=== PATIENT | female | born 1955 | race Caucasian/White ===

== ENCOUNTER 2016-10-26 12:11 | Inpatient (IN) | payer OTHER ==
[2016-10-29] MEDS ORDERED: ALBUTEROL0.63 MG/3 IH ×2 (11:26→11:31)
[2016-10-29] MEDS ORDERED: KEFLEX-DPS500 MG PO (11:26)
[2016-10-29] MEDS ORDERED: MULTIVITAMINS1 EAC1 PO (11:26)
[2016-10-29] MEDS ORDERED: MAG-OX400 MG PO (11:26)
[2016-10-29] MEDS ORDERED: MUCINEX600 MG PO (11:27)
[2016-10-29] MEDS ORDERED: ASA CHILDREN'S81 MG PO (11:27)
[2016-10-29] MEDS ORDERED: FOLIC ACID0.8 M1 PO (11:27)
[2016-10-29] MEDS ORDERED: VITAMIN D31000 UNIT PO (11:28)
[2016-10-29] MEDS ORDERED: CALCIUM 600 +1 EA13 PO (11:28)
[2016-10-29] MEDS ORDERED: ZEBETA5 MG PO (11:32)
[2016-10-29] MEDS ORDERED: COZAAR DPS25 MG PO (11:32)
[2016-10-29] MEDS ORDERED: LASIX DPS20 MG PO (11:32)
[2016-10-29] MEDS ORDERED: ADVAIR DIS1 PUFF/DO1 IH (11:33)
[2016-10-29] MEDS ORDERED: SPIRIVA RESPIMAT4 G1 IH (11:33)
[2016-10-29] MEDS ORDERED: POTASSIUM CHLO20 ME2 PO (11:34)
[2016-10-29] MEDS ORDERED: FLOVENT 44MCG10.6 GM NS (11:34)
[2016-10-29] MEDS ORDERED: LIPITOR DPS20 MG PO (11:35)
[2016-10-29] MEDS ORDERED: SINGULAIR10 MG PO (11:35)
[2016-10-29] MEDS ORDERED: PRILOSEC DPS20 MG PO (11:35)
[2016-10-29] MEDS ORDERED: PROAIR RESPICL90 MCG IH (11:35)
[2016-10-29] MEDS ORDERED: CARDIZEM CD DP120 MG PO (11:36)
[2016-10-29] MEDS ORDERED: XARELTO20 MG PO (11:36)
[2016-11-18] MEDS ORDERED: FLONASE 0.05% D16 GM NS (13:21)
[2016-11-18] MEDS ORDERED: CORDARONE DPS200 MG PO (13:22)
[2016-11-18] MEDS ORDERED: DULERA 200/58.8 GM IH (13:22)
[2016-11-18] MEDS ORDERED: TESSALON PERLE100 MG PO (13:22)
[2016-11-18] MEDS ORDERED: PROVENTIL2.5 MG/3 M IH (13:23)
[2016-11-18] MEDS ORDERED: ROBITUSSIN AC D30 ML PO (13:24)
[2016-11-18] MEDS ORDERED: MAALOX DPS30 ML PO (13:24)
[2016-11-18] MEDS ORDERED: DELTASONE DPS1 MG PO (13:24)
[2016-11-18] MEDS ORDERED: SURFAK DPS240 MG PO (13:25)
[2016-11-18] MEDS ORDERED: TYLENOL DPS325 MG PO (13:25)
== END 2016-10-28 14:20 | disposition home or self-care (01) | DRG 310 ==
DX: I48.92 Unspecified atrial flutter (principal); Z99.81 Dependence on supplemental oxygen; J44.9 Chronic obstructive pulmonary disease, unspecified; E78.5 Hyperlipidemia, unspecified; I25.10 Atherosclerotic heart disease of native coronary artery without angina pectoris; I10 Essential (primary) hypertension; E83.42 Hypomagnesemia; F41.9 Anxiety disorder, unspecified; F32.9 Major depressive disorder, single episode, unspecified; F10.21 Alcohol dependence, in remission; L03.032 Cellulitis of left toe; I25.2 Old myocardial infarction; Z79.82 Long term (current) use of aspirin; Z95.5 Presence of coronary angioplasty implant and graft; Z87.891 Personal history of nicotine dependence

== ENCOUNTER 2016-11-14 09:02 | Inpatient (IN) | payer OTHER ==
[~2016-11-14] VITALS: Ht 165.1 cm; Wt 74.8 kg
[~2016-11-14 09:02] MED LIST: ADVAIR DIS1 PUFF/DO1 IH; ALBUTEROL0.63 MG/3 IH; ASA CHILDREN'S81 MG PO; CALCIUM 600 +1 EA13 PO; CARDIZEM CD DP120 MG PO; COZAAR DPS25 MG PO; FLOVENT 44MCG10.6 GM NS; FOLIC ACID0.8 M1 PO; KEFLEX-DPS500 MG PO; LASIX DPS20 MG PO; LIPITOR DPS20 MG PO; MAG-OX400 MG PO; MUCINEX600 MG PO; MULTIVITAMINS1 EAC1 PO; POTASSIUM CHLO20 ME2 PO; PRILOSEC DPS20 MG PO; PROAIR RESPICL90 MCG IH; SINGULAIR10 MG PO; SPIRIVA RESPIMAT4 G1 IH; VITAMIN D31000 UNIT PO; XARELTO20 MG PO; ZEBETA5 MG PO
--- NOTE | 2016-11-15 14:41 | CO ---
ADMIT: 11/14/2016 RM/LOC: 414 [facility] MR#: [id number] [address] [address] JULIO CESAR YIN [address] [place] [address] Consultation SEX: F AGE: 61 : 1955 DATE OF CONSULTATION: 11/14/2016 ATTENDING PHYSICIAN: Lopez Joyce CONSULTING PHYSICIAN: Mykel Samaniego MD REASON FOR CONSULTATION: Atrial flutter with rapid ventricular response. HISTORY OF PRESENT ILLNESS: Jaki is a pleasant 61-year-old female with history of coronary artery disease, status post non-ST elevation myocardial infarction in 2013 with a drug-eluting stent to her RCA. She presented on October 27 with atrial flutter with rapid ventricular response. She underwent a NANCY and cardioversion and sinus rhythm was restored. She was placed on Xarelto and low-dose Cardizem. She has felt pretty good until recently, she started develop a cough and said she was more short of breath. She started having a pressure sensation in her chest that was similar to when she had atrial flutter last hospitalization. She was noted to be in atrial flutter and was admitted to the hospital with Cardizem drip. She says now that her heart rate is slowed down below 100. She feels much better. Her breathing is better. She still is coughing but she is not having any tightness across her chest. She does have an elevated white count on her evaluation in the emergency room. PAST MEDICAL HISTORY: 1. History of hyperlipidemia. 2. History of tobacco abuse. 3. History of COPD, oxygen dependent. 4. Coronary artery disease, status post non-ST elevation MO with stenting to the right coronary artery in 2013. 5. History of osteoarthritis. 6. History of cataracts. 7. History of depression. 8. History of alcohol use. SOCIAL HISTORY: She is , does have a history of tobacco abuse and history of alcohol use. She works at [employer]. FAMILY HISTORY: Father had myocardial infarction at age 68 and a grandfather had myocardial infarction at age 70, mother with a stroke. REVIEW OF SYSTEMS: GENERAL: She denies any fever or chills. Denies any weight changes. EYES: She does have cataracts, removed in last March, wears corrective lenses for reading. ENT: Denies any hearing loss. No problems with her nose, throat, and mouth. PULMONARY: She has oxygen-dependent COPD, has been coughing more. GI: Denies any nausea, vomiting, or diarrhea. She does have history of reflux. : Denies any dysuria or hematuria. ADMIT: 11/14/2016 RM/LOC: 414 [facility] MR#: [id number] [address] [place] [id number] JULIO CESAR YIN [address] [place] [address] Consultation SEX: F AGE: 61 : 1955 MUSCULOSKELETAL: She has a history of arthritis. ENDOCRINE: Denies history of thyroid dysfunction or diabetes. HEMATOLOGIC: Denies history of anemia or easy bruising. She is on Xarelto now. Denies history of cancer. NEUROLOGIC: No history of TIA or stroke. PSYCHIATRIC: Does have history of depression. Denies any anxiety. ALLERGIES: NO KNOWN DRUG ALLERGIES. MEDICATION: 1. Aspirin 81 mg daily. 2. Cardizem 120 mg daily. 3. Calcium daily. 4. Cozaar 25 mg daily. 5. Keflex 500 mg 3 times a day for cellulitis. 6. Potassium 20 mEq twice daily. 7. Lasix 20 mg daily. 8. Lipitor 40 mg at bedtime. 9. Mag oxide 400 mg daily. 10.Omeprazole 20 mg daily. 11.Multivitamin daily. 12.Vitamin D daily. 13.Xarelto 20 mg daily. 14.Zebeta 2.5 mg daily. 15.Proventil p.r.n. diarrhea daily. 16.Flonase 1 puff daily. PHYSICAL EXAMINATION: VITAL SIGNS: Blood pressure 122/74, pulse 107 and irregular, respirations 20, temperature 97.8, oxygen 93% on 2 L. GENERAL: She is alert, oriented, and conversant. She is in no acute distress. SKIN: [place], warm, and dry. EYES: No scleral icterus. No xanthelasma. ENT: Moist mucous membranes. No jugular venous distention. No carotid bruits. LUNGS: She has coarse breath sounds. HEART: Irregularly irregular. ABDOMEN: Soft, nontender, and nondistended. EXTREMITIES: No cyanosis, clubbing, or edema. PSYCHIATRIC: She is alert, oriented, and appropriate NEUROLOGIC: Cranial nerves II through XII intact. DIAGNOSTIC DATA: EKG shows atrial flutter with 2-1 block initially. IMPRESSION AND RECOMMENDATION: 1. Atrial flutter. This is recurrent. She underwent NANCY cardioversion on her last hospitalization about 3 weeks ago. She has had recurrent symptoms last night. She has been on anticoagulation with Xarelto, so we ADMIT: 11/14/2016 RM/LOC: 414 [facility] MR#: [id number] [address] [place] [phone] JULIO CESAR YIN [address] [place] [address] Consultation SEX: F AGE: 61 : 1955 will try to chemically cardiovert her. We will give her dose of IV digoxin and IV amiodarone. If this is not successful, we will consider DC cardioversion. We will also need to consider EP consultation, given these recurrent episodes. We also will try to increase her rate control medications but this has been limited by her blood pressure. 2. Coronary artery disease, status post [id number] myocardial infarction in 2013. She will need an outpatient ischemic evaluation. Her last one was in 2014. 3. Chronic obstructive pulmonary disease. 4. Elevated white count at [address] Keith. Thank you for allowing us to participate in the care of your patient. If I can be of further assistance, please give me a call. Mykel Samaniego MD/ anselmo JOB #: [id number] CC: Lopez Joyce, Attending Physician Lopez Joyce, Family Physician
--- NOTE | 2016-11-15 15:00 | HP ---
ADMIT: 11/14/2016 RM/LOC: 414 [facility] MR#: [id number] [address] [address] JULIO CESAR YIN [address] [place] [address] History and Physical SEX: F AGE: 61 : 1955 DATE OF SERVICE: Interim History and Physical CHIEF COMPLAINT: Recurrent atrial flutter with rapid ventricular response. CLINICAL HISTORY: The patient is a 61-year-old white female, who is readmitted to [facility] after being seen in the emergency room on Wednesday morning, 11/14/2016. The patient had contacted our office early on the morning of 11/14/2016 complaining of rapid heart rate, a sensation of pressure across her chest, and feeling like she did when she went into atrial fibrillation previously. Note the patient was hospitalized here at [facility] from 10/26/2016 through 10/28/2016. The patient was admitted with atrial flutter with rapid ventricular response. She was seen in consult by [facility] Cardiology and underwent elective cardioversion following a transesophageal echocardiogram on the morning of 10/27/2016. Following cardioversion, she remained in normal sinus rhythm and was placed on oral Cardizem. She had some difficulty during that hospitalization with low blood pressure, and so was dismissed on a dose of Cardizem CD 120 mg daily. The patient subsequently has been followed up at our office by Dr. Joyce. She was seen at our office one week post discharge and was in a normal sinus rhythm at that time. She notes that she felt good until the evening of 11/13/2016, when she started to notice that her heart rate had sped up and she felt some tightness and pressure across her anterior chest. The patient had to sit up through the night and slept with her O2 on as she usually does, but upon awakening on the morning of 11/14/2016, her heart rate still seemed to be very fast and she was still having some tightness across her chest. For that reason, as noted, she contacted our office and we instructed her to go to the emergency room. She is evaluated in the ER by Dr. Lazaro, who noted on EKG that she was in atrial flutter with 2:1 block with a rate ranging from 115 to as high as 140. In view of her recurrent atrial fib flutter with some associated hypotension, it was felt best to admit the patient. She was given IV Cardizem in the ER and her rate slowed down to the 100 range. She was started on a Cardizem drip in the ER as well and admitted to the fourth floor PCU for continued cardiac monitoring as well as further Cardiology consultation. For additional clinical history, I refer you to her H and P from 10/26/2016. The patient notes no other recent hospitalizations. Her primary medical problems include: 1. Chronic obstructive pulmonary disease, O2 dependent at night. 2. Hypertension. 3. Hyperlipidemia. 4. Coronary artery disease with history of previous PTCA with stent in August of 2013. 5. She also has history of chronic anxiety and mild depression. 6. 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 The patient is a former smoker having quit smoking in August of 2013 when they placed her stent. For additional past medical history, social history, and family history, please see previous H and P. ADMIT: 11/14/2016 RM/LOC: 414 [facility] MR#: [id number] [address] [address] JULIO CESAR YIN [address] [place] [address] History and Physical SEX: F AGE: 61 : 1955 CURRENT MEDICATIONS: As of her discharge of 10/28/2016, included: 1. Baby aspirin 81 mg daily. 2. Calcium with vitamin D one daily. 3. Cardizem CD 120 mg daily. 4. Cozaar 25 mg daily. 5. Potassium 20 mEq b.i.d. 6. Lasix 20 mg daily. 7. Lipitor 40 mg at bedtime. 8. Magnesium oxide 400 mg daily. 9. Omeprazole 20 mg daily. 10.Multivitamin 1 daily. 11.Vitamin D daily. 12.Xarelto 20 mg daily, initiated at last hospitalization. 13.Zebeta 2.5 mg daily. 14.Proventil inhaler 2 puffs q.3 to 4 hours p.r.n. 15.Spiriva 18 mcg one capsule inhaled daily. 16.Flonase 2 whiffs each naris once daily. 17.TJN treatments with albuterol q.i.d. and p.r.n. Do note, at last discharge she was dismissed on Keflex. She finished that one week post discharge. The patient notes no other medication changes. ALLERGIES: NO KNOWN ALLERGIES TO ANY MEDICATIONS. REVIEW OF SYSTEMS: CONSTITUTIONAL: She denies fever or chills, had been feeling well until the evening of 11/13/2016. HEENT: She has been having some ongoing chronic sinus congestion. Denies any vision or hearing change. PULMONARY: Chronically, short of breath. Marked dyspnea on exertion, uses O2 continuously at night. Usually does not use oxygen during the day. She denies any pleuritic chest pain. No hemoptysis. No increase in sputum production. CARDIAC: She has a known history of coronary artery disease. She has had previous PTCA with stent. She has had some tightness or heaviness across her chest associated with her tachycardia, status post cardioversion on 10/27/2016. GASTROINTESTINAL: Does have some occasional dyspepsia and indigestion this is usually well controlled with her omeprazole. She has had no nausea, vomiting, or diarrhea. No blood in the stools. GENITOURINARY: She is post menopausal. No voiding symptoms. MUSCULOSKELETAL: Some generalized arthritic discomfort. No recent falls or injuries. NEUROLOGIC: No focal symptoms. No unusual headaches. No lightheadedness, dizziness, or syncope. Integument: No rashes or areas of skin breakdown. PHYSICAL EXAMINATION: At this time; GENERAL: The patient is a 61-year-old female, who appears older than her stated age. She is alert and cooperative, oriented x3. She is in no acute distress. ADMIT: 11/14/2016 RM/LOC: 414 [facility] MR#: [id number] [address] [address] JULIO CESAR YIN Monica [address] [place] [address] History and Physical SEX: F AGE: 61 : 1955 VITAL SIGNS: Height 5 feet 5.5 inches, weight is 169 pounds. Temp is 98 degrees, blood pressure was 100/64, pulse was running 115 to 120, respirations were 20, O2 saturation with oxygen on is 95%. HEENT: Exam revealed her pupils to be equal and reactive. Sclerae nonicteric. Conjunctivae noninflamed. Nose and throat are unremarkable. Oral mucous membranes are moist. NECK: Supple. No lymphadenopathy. Thyroid not enlarged. No neck masses. LUNGS: Today are noted to be diminished. Poor air movement. No wheezes or rales. HEART: Noted to have an irregular rhythm. She is tachycardic. I cannot appreciate any murmurs. ABDOMEN: Soft, nontender. No masses. No organomegaly. No hernias. PELVIC, BREAST, AND RECTAL: Exam not performed. EXTREMITIES: Noted to have no clubbing or cyanosis. No significant peripheral edema. No calf tenderness. No signs of thrombophlebitis. NEUROLOGIC: She is intact with no focal deficit. Balance and gait are normal. Cranial nerves II through XII grossly intact. LABORATORY AND DIAGNOSTIC DATA: EKG in the ER shows atrial flutter with 2:1 block with rapid ventricular response. Her CBC did show an elevated white count of 19,200. Her electrolytes were normal. Cardiac enzymes including troponin I were normal. Chest x-ray shows changes of COPD with no acute infiltrates. No evidence of failure. ASSESSMENT: At the time of admission: 1. Recurrent atrial flutter with rapid ventricular response. 2. SA node dysfunction. 3. Atherosclerotic coronary vascular disease, status post prior PTCA with stent. 4. Chronic obstructive pulmonary disease, O2 dependent at night. 5. Tobacco use disorder, in full sustained remission. 6. Leukocytosis, felt to be stress response due to her tachyarrhythmia. PLAN: Plan is to admit the patient to fourth floor PCU. We will continue with Kathryn zimmerman. We will ask Cardiology to see her again and get their recommendations regarding further medical management of her atrial fibrillation flutter versus repeating another cardioversion. We will continue her on her Xarelto anticoagulation. HISTORY AND PHYSICAL EXAMINATION FROM ADMISSION OF 10/26/2016 CHIEF COMPLAINT: Atrial flutter with rapid ventricular response. HISTORY OF PRESENT ILLNESS: Jaki is a very nice 61-year-old female, who has been seen in the office today for routine healthcare checkup. She has history of COPD, hyperlipidemia, and coronary artery disease. She states that she has noticed her heart beating a little bit faster recently, but did not know why it was going this fast. When she was checked in the office, her vital signs ADMIT: 11/14/2016 RM/LOC: 414 [facility] MR#: [id number] [address] [place] [id number] JULIO CESAR YIN [address] [place] [address] History and Physical SEX: F AGE: 61 : 1955 showed a heart rate of 154. This was confirmed with EKG which showed heart rate of 160 with atrial flutter and rapid ventricular response. She denies any prior problems with atrial flutter or rapid heartbeat. She does admit to a little bit of chest tightness with her heart going this fast. She does have history of coronary artery disease, followed by [facility] Cardiology. She is admitted to hospital at this time for atrial flutter with rapid ventricular response. PAST MEDICAL HISTORY: Includes COPD, hypertension, hyperlipidemia, coronary artery disease. She last had a coronary stent placed in August 2013. She has history of chronic anxiety, depression, prior history of alcohol abuse but she has been in remission now for the last couple of years. SURGICAL HISTORY: Negative other than 3 childbirth. SOCIAL HISTORY: Former smoker. Smoked a pack and half of cigarettes per day for 30 years, quit 2013. Prior history of alcohol abuse but currently not using alcohol. She is , lives with her . Her children are grown. FAMILY HISTORY: Noncontributory. ALLERGIES: NONE. CURRENT MEDICATIONS: 1. Uses ProAir metered dose inhaler, p.r.n. 2. Albuterol twin jet nebulizer p.r.n. 3. Lasix 20 mg p.o. daily. 4. Uses Singulair 10 mg p.o. daily. 5. Advair Diskus 250/50 one puff b.i.d. 6. Spiriva 1 inhalation daily. 7. Omeprazole 20 mg p.o. daily. 8. Folic acid 800 mcg daily. 9. Potassium 20 mEq daily. 10.Aspirin 81 mg a day. 11.Plavix 75 mg daily. 12.Losartan 25 mg daily. 13.Magnesium 400 mg. 14.Lipitor 40 mg at bedtime. 15.Zebeta 5 mg daily. 16.P.r.n. ibuprofen. REVIEW OF SYSTEMS: A 10-point review of systems negative other than noted above. PHYSICAL EXAM: GENERAL: 61-year-old female. She is alert and cooperative x3. No acute distress. VITAL SIGNS: In the office her blood pressure was 124/82, heart rate was 154, weight 163 pounds. Her oxygen saturation on room air was 96%. Her height is ADMIT: 11/14/2016 RM/LOC: 414 [facility] MR#: [id number] [address] [address] JULIO CESAR YIN [address] [place] [address] History and Physical SEX: F AGE: 61 : 1955 65.5 inches and temp 98.8. HEENT: Eyes, PERRLA. EOMs intact. TMs not seen. Throat is moist, not inflamed. NECK: Supple. No lymphadenopathy. No thyromegaly. LUNGS: Clear. HEART: Regular rate, tachycardic. No murmur heard. ABDOMEN: Soft. No organomegaly or tenderness. and RECTAL: Deferred. EXTREMITIES: No clubbing, cyanosis, or edema. DIAGNOSTIC IMPRESSION: 1. Atrial flutter with rapid ventricular response. 2. Coronary artery disease. 3. Hyperlipidemia. 4. Chronic obstructive pulmonary disease. 5. History of alcohol abuse in remission. 6. Cellulitis left 3rd toe. Failed to mention the tip of left 3rd toe has little bit of inflammation along the nail. PLAN: Admit to hospital for telemetry, serial EKG, enzymes check, thyroid levels. Cardiology consult, oral Keflex for the toe cellulitis. Hoang Keith MD/ anselmo JOB #: [id number] and [id number] CC: Lopez Joyce, Attending Physician Lopez Joyce, Family Physician
[2016-11-18] MEDS ORDERED: FLONASE 0.05% D16 GM NS (13:21)
[2016-11-18] MEDS ORDERED: DULERA 200/58.8 GM IH (13:22)
[2016-11-18] MEDS ORDERED: CORDARONE DPS200 MG PO (13:22)
[2016-11-18] MEDS ORDERED: TESSALON PERLE100 MG PO (13:22)
[2016-11-18] MEDS ORDERED: PROVENTIL2.5 MG/3 M IH (13:23)
[2016-11-18] MEDS ORDERED: ROBITUSSIN AC D30 ML PO (13:24)
[2016-11-18] MEDS ORDERED: MAALOX DPS30 ML PO (13:24)
[2016-11-18] MEDS ORDERED: DELTASONE DPS1 MG PO (13:24)
[2016-11-18] MEDS ORDERED: TYLENOL DPS325 MG PO (13:25)
[2016-11-18] MEDS ORDERED: SURFAK DPS240 MG PO (13:25)
--- NOTE | 2016-11-20 07:43 | DS ---
ADMIT: 11/14/2016 RM/LOC: 414 [facility] MR#: [id number] [address] [address] NACHODAVIDISABELLE MALDONADODOTTIE Anderson [address] [place] [address] General Discharge Summary SEX: F AGE: 61 : 1955 ADMISSION DATE: 11/14/2016 DISCHARGE DATE: 11/17/2016 DISMISSAL DIAGNOSIS: Recurrent atrial flutter with rapid ventricular response. DISMISSAL DIAGNOSIS: Atrial flutter converted to sinus rhythm. COMPLICATING DIAGNOSES: 1. Chronic obstructive pulmonary disease with acute exacerbation. 2. Acute sinusitis. 3. Hyperlipidemia. 4. History of alcohol abuse, currently in remission. 5. Cellulitis of left 3rd toe. CHIEF COMPLAINT AND HISTORY OF PRESENT ILLNESS: A 61-year-old female, readmitted to [facility] after being seen in the emergency room on November 14, with complaints of rapid heartbeat. She had a prior history of AFib, and she said it felt similarly. She came into the emergency room, was found to be in aflutter with rapid ventricular response. Previously, she had elective cardioversion done on October 27 and stayed in sinus rhythm until this current episode. Ventricular rate in the emergency room was in the 120 to 140 range, and therefore admitted to the hospital for Cardiology consult. LABORATORY REPORTS: See lab summary sheets for details. RADIOLOGY REPORTS: CT of the sinuses showed acute maxillary sinusitis on the right side. Chest x-ray was normal. EKG showed sinus tachycardia with PACs, diffuse ST changes. Serial EKG showed the same. COURSE IN THE HOSPITAL: She was admitted, seen by Cardiology. Serial EKG, cardiac enzymes were obtained. She was placed on Cardizem drip. She did convert to sinus rhythm. She did have elevated white blood cell count on admission, so she had cultures obtained, was started on IV Rocephin 2 g q.24 hours. Blood cultures were obtained along with lactic acid and procalcitonin levels. Her white count on admission was 19.2, hemoglobin 14.7. Electrolytes on admission shows sodium 139, potassium 4.0, chloride 101, CO2 of 25, BUN 13, creatinine 1.0, glucose 104. The following day, white count on November 15 was 14,000, hemoglobin 11.9, potassium 3.9, magnesium 1.7, creatinine 0.8. Blood and urine cultures showed no growth. She had persistent cough and sinus drainage. She was started on Advair, Mucinex, and Tessalon Perles. She was placed on amiodarone drip initially in that she converted and was switched to oral amiodarone. Her cough and congestion improved. Prior to dismissal, she was improved, she was afebrile. Sats on room air were 89% to 98% range. DISCHARGE MEDICATIONS: She was dismissed on: 1. Aspirin 81 mg daily. 2. Calcium with vitamin D daily. 3. Cardizem 120 mg daily. ADMIT: 11/14/2016 RM/LOC: 414 [facility] MR#: [id number] [address] [place] [phone] JULIO CESAR YIN [address] [place] [address] General Discharge Summary SEX: F AGE: 61 : 1955 4. Amiodarone 200 mg two tablets b.i.d. plus additional 50 mg tablet once a day. 5. Cozaar 25 mg daily. 6. Potassium 20 mEq b.i.d. 7. Lasix 20 mg daily. 8. Lipitor 40 mg at bedtime. 9. Magnesium oxide 400 mg daily. 10.Mucinex 600 mg two tablets b.i.d. 11.Omeprazole 20 mg daily. 12.Tessalon Perles p.r.n. for cough. 13.Multivitamin 1 daily. 14.Vitamin D 1000 International Units daily. 15.Xarelto 20 mg daily. 16.Zebeta 5 mg daily. 17.Dulera 200/5 two puffs b.i.d. 18.Proventil inhaler p.r.n. 19.Spiriva 18 mcg capsule inhaled once daily. 20.Flonase nasal spray daily. 21.Keflex 500 mg t.i.d. 22.Prednisone tapering dose 30 mg daily for four days, 20 mg daily for 7 days, 10 mg daily for 14 days, then stop it. 23.Keflex 500 mg t.i.d. for 10 days. DISCHARGE INSTRUCTIONS: She will be seen back in the office on November 20, for followup with myself. Lopez Joyce MD/ anselmo JOB #: [id number] CC: Lopez Joyce MD, Attending Physician Lopez Joyce MD, Family Physician
--- NOTE | 2016-11-21 08:15 | ER ---
ADMIT: 11/14/2016 RM/LOC: 414 [facility] MR#: [id number] [address] [place], [place] [address] JULIO CESAR YIN [address] [place] [address] Emergency Room Report SEX: F AGE: 61 : 1955 DATE: 11/14/2016 HISTORY OF PRESENT ILLNESS: A 61-year-old female, who started having palpitations and fast heart rate yesterday. She has had similar symptoms in the past, so, she felt that she would just wait to decelerate, however, it intensified throughout the night and early childhood associate hours, so was subsequently brought to the Emergency Department by her because of fast racing heart and feeling short of breath. Again, she had been hospitalized two weeks ago for atrial flutter and was cardioverted at that time, and was started on Cardizem. She says these symptoms feel similar to that. PAST MEDICAL HISTORY: Significant for atrial flutter as mentioned, myocardial infarction three years ago, hypertension, and COPD. PHYSICAL EXAMINATION: GENERAL: Reveals a 61-year-old female, in mild-to- moderate amount of distress, anxious, and tachypneic. LUNGS: Diminished breath sounds throughout with rhonchi heard on the right. CARDIOVASCULAR: Tachycardia with no murmurs or gallops. ABDOMEN: Soft and nontender. EXTREMITIES: No pedal edema. SKIN: Skin was ashen. NEUROLOGIC: No focal findings. LABORATORY DATA: CBC was significant for white count of 19.2, glucose is 104. Monitor showed an SVT. COURSE IN THE EMERGENCY DEPARTMENT: She was given a total of 10 mg of Cardizem IV in the Emergency Department, which slowed her from the 130s down to 100 to 107. She was placed on oxygen. Chest x-ray was unremarkable. The patient was subsequently admitted with SVT and exacerbation of chronic obstructive pulmonary disease. Imtiaz Lazaro MD/ anselmo JOB #: [id number] CC: Lopez Joyce MD, Attending Physician Lopez Joyce MD, Family Physician
== END 2016-11-17 11:40 | disposition home or self-care (01) | DRG 309 ==
LOC: ER 09:02 → 4PCU 11:15
PROVIDERS: ADMIT Family Medicine
DX: I48.92 Unspecified atrial flutter (principal); J44.1 Chronic obstructive pulmonary disease with (acute) exacerbation; I49.5 Sick sinus syndrome; Z99.81 Dependence on supplemental oxygen; J01.90 Acute sinusitis, unspecified; E78.5 Hyperlipidemia, unspecified; I10 Essential (primary) hypertension; M19.90 Unspecified osteoarthritis, unspecified site; F41.9 Anxiety disorder, unspecified; L03.032 Cellulitis of left toe; F32.9 Major depressive disorder, single episode, unspecified; I25.10 Atherosclerotic heart disease of native coronary artery without angina pectoris; D72.829 Elevated white blood cell count, unspecified; I25.2 Old myocardial infarction; Z87.891 Personal history of nicotine dependence; Z82.49 Family history of ischemic heart disease and other diseases of the circulatory system; Z95.5 Presence of coronary angioplasty implant and graft